=== PATIENT | male | born 1965 | race Two or more races ===

== ENCOUNTER 2023-11-08 14:03 | Outpatient (AMB) | payer OTHER, SELFPAY ==
--- NOTE | 2023-11-08 14:15 | HO.NEPHOV ---
HPI HPI Comments History of Present Illness Details Dieter was seen in follow-up of his chronic kidney disease and hypertension. 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 He had global glomerulosclerosis of 25% of total glomeruli with mild interstitial fibrosis and tubular atrophy of 20% at the time of his renal biopsy. 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 He has not taking any nonsteroidal anti-inflammatories. He has no edema or urinary symptoms. His blood pressure has been at goal. He is compliant with his medications. His last serum creatinine has been 1.6. [facility] Medical History (Updated 11/08/23 @ 14:35 by Angelo Hitchcock MD) Chronic kidney disease, stage 3a Hypertension Surgical History History of hernia repair Family History Brother Diabetes Social History (Updated 11/08/23 @ 14:21 by Ethel Luke MA) Alcohol intake: never Patient Tobacco Use Status: Never used Tobacco Vital Signs 11/08/23 14:16 Height 5 ft 6 in Weight 195 lb BMI 31.5 BP 130/80 Blood Pressure Location Lt brachial Position Sitting Pulse 65 Pulse Source Pulse Oximeter Pulse Oximetry (%) 97 Oxygen Delivery Method Room Air Physical Exam Vital Signs: Last Vital Signs Pulse 65 11/08/23 14:16 BP 130/80 11/08/23 14:16 Pulse Ox 97 11/08/23 14:16 Oxygen Delivery Method Room Air 11/08/23 14:16 BMI result Body Mass Index 31.5 Const General: comfortable and no acute distress Orientation/consciousness: patient oriented x3 HEENT Head: Yes normocephalic Mouth: Normal oral and palatal mucosa present Eyes EOM: EOMs intact bilaterally Neck Neck: Yes supple Resp Auscultation: clear to auscultation bilaterally Cardio Jugular venous distension: no JVD Rate: regular rate GI Palpation (GI): Soft to palpation Auscultation: normal bowel sounds General: Yes no CVA tenderness Back/Spine/Pelvis Back: no CVA tenderness Skin General skin exam: no rashes or lesions noted Neuro General: patient oriented x3 and moves all extremities Extrem General: Yes no pedal edema Assessment & Plan Assessment & Plan (1) Chronic kidney disease, stage 3a: Code(s): N18.31 - Chronic kidney disease, stage 3a (2) Hypertension: Code(s): I10 - Essential (primary) hypertension Qualifiers: Hypertension type: primary hypertension Qualified Code(s): I10 - Essential (primary) hypertension Plan His last serum creatinine was 1.6. His losartan is on hold and had been initiated on low-dose ROSAS inhibitor which he has been tolerating well. He can continue his current blood pressure medications as it is keeping it at goal. He maintains good hydration. He avoids nonsteroidal anti-inflammatories. He has not a diabetic. He is on statins. I did not make any medication changes today. Follow-up lab work ordered. Answered all questions. Appointment given. Orders: Orders Blood Urea Nitrogen Today I10 - Essential (primary) hypertension, N18.31 - Chronic kidney disease, stage 3a Electrolytes Today I10 - Essential (primary) hypertension, N18.31 - Chronic kidney disease, stage 3a Protein Creatinine Ratio, Ur Today I10 - Essential (primary) hypertension, N18.31 - Chronic kidney disease, stage 3a Creatinine Today I10 - Essential (primary) hypertension, N18.31 - Chronic kidney disease, stage 3a Coding Level of Care Code Est Pt Level 3 (74388) Diagnoses Chronic kidney disease, stage 3a N18.31 Primary hypertension I10 Hypertension type: primary hypertension Results Reviewed Nephrology Results: No Data to Display
[2023-11-08 14:16] VITALS: BP 130/80; PULSE 65; O2SAT 97; BMI 31.5
== END 2023-11-08 14:44 | disposition home or self-care (01) ==
PROVIDERS: PCP Pediatrics; Visit Provider Internal Medicine Nephrology
DX: N18.31 Chronic kidney disease, stage 3a (principal); I10 Essential (primary) hypertension
CPT/HCPCS: 99213

== ENCOUNTER → 2023-11-08 14:03 | Outpatient (BNVA) | payer OTHER, SELFPAY | PROVIDERS: PCP Pediatrics; Visit Provider Internal Medicine Nephrology | DX: I12.9 Hypertensive chronic kidney disease with stage 1 through stage 4 chronic kidney disease, or unspecified chronic kidney disease (principal); N18.31 Chronic kidney disease, stage 3a | CPT/HCPCS: 99212 ==

== ENCOUNTER 2024-03-13 11:09 | Outpatient (REF) | payer OTHER, SELFPAY ==
[2024-03-13 18:29] LABS: Anion Gap 13 (12-20); Blood Urea Nitrogen 30 mg/dL (9-16); Carbon Dioxide 24 mmol/L (22-29); Chloride 107 mmol/L (96-108); Estimated Glomerular Filt Rate 39; Potassium 4.2 mmol/L (3.3-5.1); Sodium 140 mmol/L (135-145)
== END 2024-03-13 11:10 | disposition home or self-care (01) ==
LOC: HO.HKASLDS 11:09
PROVIDERS: Visit Provider Internal Medicine Nephrology
DX: I12.9 Hypertensive chronic kidney disease with stage 1 through stage 4 chronic kidney disease, or unspecified chronic kidney disease (principal); N18.31 Chronic kidney disease, stage 3a
CPT/HCPCS: 36415; 80051; 82565; 84520; 99212

== ENCOUNTER 2024-03-13 11:18 | Outpatient (AMB) | payer OTHER, SELFPAY ==
--- NOTE | 2024-03-13 11:24 | HO.NEPHOV_ITS ---
Vital Signs 03/13/24 11:26 Height 5 ft 6 in Weight 188 lb 6 oz BMI 30.4 BP 106/70 Blood Pressure Location Lt brachial Position Sitting Pulse 71 Pulse Source Pulse Oximeter Pulse Oximetry (%) 97 Oxygen Delivery Method Room Air Intake Visit Reasons: Rscng missed appt/ Conf Second Facing Baster Required: No Accompanied by: Self / Same As Patient Allergies Oxycodone-Acetaminophen Allergy (Uncoded 11/08/23 13:27) Unknown HPI Comments Details: Dieter was seen in follow-up of his chronic kidney disease and hypertension. 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 He had global glomerulosclerosis of 25% of total glomeruli with mild interstitial fibrosis and tubular atrophy of 20% at the time of his renal biopsy. 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 He has not taking any nonsteroidal anti-inflammatories. He has no edema or urinary symptoms. His blood pressure has been at goal. He is compliant with his medications. His last serum creatinine has been 1.6. [facility] Medical History (Updated 11/08/23 @ 14:35 by Angelo Hitchcock MD) Chronic kidney disease, stage 3a Hypertension Surgical History History of hernia repair Family History Brother Diabetes Social History (Updated 11/08/23 @ 14:21 by Ethel Luke MA) Alcohol intake: never Patient Tobacco Use Status: Never used Tobacco Review of Systems Const All systems reviewed & are unremarkable except as noted in HPI and below Physical Exam Const General: comfortable and no acute distress Orientation/consciousness: patient oriented x3 HEENT Head: Yes normocephalic Mouth: Normal oral and palatal mucosa present Eyes EOM: EOMs intact bilaterally Neck Neck: Yes supple Resp Auscultation: clear to auscultation bilaterally Cardio Jugular venous distension: no JVD Rate: regular rate GI Palpation (GI): Soft to palpation Auscultation: normal bowel sounds General: Yes no CVA tenderness Back/Spine/Pelvis Back: no CVA tenderness Skin General skin exam: no rashes or lesions noted Neuro General: patient oriented x3 and moves all extremities Extrem General: Yes no pedal edema Results Reviewed Nephrology Results: No Data to Display Assessment & Plan Assessment & Plan (1) Chronic kidney disease, stage 3a: Code(s): N18.31 - Chronic kidney disease, stage 3a Category: Medical (2) Hypertension: Code(s): I10 - Essential (primary) hypertension Category: Medical Qualifiers: Hypertension type: primary hypertension Qualified Code(s): I10 - Essential (primary) hypertension Plan His last serum creatinine was 1.6. He had blood work today. He had been initiated on low-dose ROSAS inhibitor which he has been tolerating well. He can continue his current blood pressure medications as it is keeping it at goal. He maintains good hydration. He avoids nonsteroidal anti-inflammatories. He has not a diabetic. He is on statins. I did not make any medication changes today. Follow-up lab work ordered. Answered all questions. Orders: Orders Creatinine 4 Months I10 - Essential (primary) hypertension, N18.31 - Chronic kidney disease, stage 3a Blood Urea Nitrogen 4 Months I10 - Essential (primary) hypertension, N18.31 - Chronic kidney disease, stage 3a Electrolytes 4 Months I10 - Essential (primary) hypertension, N18.31 - Chronic kidney disease, stage 3a Protein Creatinine Ratio, Ur Today I10 - Essential (primary) hypertension, N18.31 - Chronic kidney disease, stage 3a Coding Level of Care Code Est Pt Level 4 (08756) Diagnoses Chronic kidney disease, stage 3a N18.31 Primary hypertension I10 Hypertension type: primary hypertension
[2024-03-13 11:26] VITALS: BP 106/70; PULSE 71; O2SAT 97; BMI 30.4
== END 2024-03-13 11:43 | disposition home or self-care (01) ==
PROVIDERS: PCP Pediatrics; Visit Provider Internal Medicine Nephrology
DX: N18.31 Chronic kidney disease, stage 3a (principal); I10 Essential (primary) hypertension
CPT/HCPCS: 99214

== ENCOUNTER 2024-03-21 08:27 | Outpatient (REF) | payer OTHER, SELFPAY ==
[2024-03-21 18:18] LABS: Creatinine Urine 161.94 mg/dL; Protein/Creatinine Ratio, Ur 0.08 (<0.2); Total Protein Urine Random 13 mg/dL (<12)
== END 2024-03-21 08:28 | disposition home or self-care (01) ==
LOC: HO.HKASLDS 08:27
PROVIDERS: Visit Provider Internal Medicine Nephrology
DX: I12.9 Hypertensive chronic kidney disease with stage 1 through stage 4 chronic kidney disease, or unspecified chronic kidney disease (principal); N18.31 Chronic kidney disease, stage 3a
CPT/HCPCS: 82570; 84156

== ENCOUNTER 2024-07-03 08:42 | Outpatient (REF) | payer OTHER, SELFPAY ==
[2024-07-03 13:15] LABS: Anion Gap 13 (12-20); Blood Urea Nitrogen 22 mg/dL (9-16); Carbon Dioxide 28 mmol/L (22-29); Chloride 106 mmol/L (96-108); Estimated Glomerular Filt Rate 35; Potassium 4.6 mmol/L (3.3-5.1); Sodium 142 mmol/L (135-145)
== END 2024-07-03 08:43 | disposition home or self-care (01) ==
LOC: HO.HKASLDS 08:42
PROVIDERS: Visit Provider Internal Medicine Nephrology
DX: N18.31 Chronic kidney disease, stage 3a (principal); I10 Essential (primary) hypertension
CPT/HCPCS: 36415; 80051; 82565; 84520

== ENCOUNTER 2024-07-05 10:40 | Outpatient (AMB) | payer OTHER, SELFPAY ==
--- NOTE | 2024-07-05 10:53 | HO.NEPHOV_ITS ---
Vital Signs 07/05/24 10:54 Height 5 ft 6 in Weight 188 lb 2 oz BMI 30.4 BP 90/70 Blood Pressure Location Lt brachial Position Sitting Pulse 68 Pulse Source Pulse Oximeter Pulse Oximetry (%) 97 Oxygen Delivery Method Room Air Intake Visit Reasons: 4 mon follow up- Conf Hands Hanger Required: No Accompanied by: Self / Same As Patient Allergies Oxycodone-Acetaminophen Allergy (Uncoded 11/08/23 13:27) Unknown HPI Comments Details: Dieter was seen in follow-up of his chronic kidney disease and hypertension. 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 He had global glomerulosclerosis of 25% of total glomeruli with mild interstitial fibrosis and tubular atrophy of 20% at the time of his renal biopsy. 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 He has not taking any nonsteroidal anti-inflammatories. He has no edema or urinary symptoms. His blood pressure has been at goal. He is compliant with his medications. His last serum creatinine has been stable [facility] Medical History (Updated 11/08/23 @ 14:35 by Angelo Hitchcock MD) Chronic kidney disease, stage 3a Hypertension Surgical History History of hernia repair Family History Brother Diabetes Social History Alcohol intake: never Patient Tobacco Use Status: Never used Tobacco Review of Systems Const All systems reviewed & are unremarkable except as noted in HPI and below Physical Exam Vital Signs: Last Vital Signs Pulse 68 07/05/24 10:54 BP 90/70 07/05/24 10:54 Pulse Ox 97 07/05/24 10:54 Oxygen Delivery Method Room Air 07/05/24 10:54 BMI result Body Mass Index 30.4 Const General: comfortable and no acute distress Orientation/consciousness: patient oriented x3 HEENT Head: Yes normocephalic Mouth: Normal oral and palatal mucosa present Eyes EOM: EOMs intact bilaterally Neck Neck: Yes supple Resp Auscultation: clear to auscultation bilaterally Cardio Jugular venous distension: no JVD Rate: regular rate GI Palpation (GI): Soft to palpation Auscultation: normal bowel sounds General: Yes no CVA tenderness Back/Spine/Pelvis Back: no CVA tenderness Skin General skin exam: no rashes or lesions noted Neuro General: patient oriented x3 and moves all extremities Extrem General: Yes no pedal edema Results Reviewed Nephrology Results: Sodium 142 mmol/L (135-145) 07/03/24 Potassium 4.6 mmol/L (3.3-5.1) 07/03/24 Chloride 106 mmol/L (96-108) 07/03/24 Carbon Dioxide 28 mmol/L (22-29) 07/03/24 BUN 22 mg/dL (9-16) H 07/03/24 Creatinine 1.94 mg/dL (0.5-1.4) H 07/03/24 Urine Creatinine 161.94 mg/dL 03/21/24 Protein/Creatinin Ratio 0.08 (<0.2) 03/21/24 Assessment & Plan Assessment & Plan (1) Chronic kidney disease, stage 3a: Code(s): N18.31 - Chronic kidney disease, stage 3a Category: Medical (2) Hypertension: Code(s): I10 - Essential (primary) hypertension Category: Medical Qualifiers: Hypertension type: primary hypertension Qualified Code(s): I10 - Essential (primary) hypertension Plan His last serum creatinine is stable. He had been initiated on low-dose ROSAS inhibitor which he has been tolerating well. He can continue his current blood pressure medications as it is keeping it at goal. He maintains good hydration. He avoids nonsteroidal anti-inflammatories. He has not a diabetic. He is on statins. I did not make any medication changes today. Follow-up lab work ordered. Answered all questions Orders: Orders Creatinine 3 Months I10 - Essential (primary) hypertension, N18.31 - Chronic kidney disease, stage 3a Blood Urea Nitrogen 3 Months I10 - Essential (primary) hypertension, N18.31 - Chronic kidney disease, stage 3a Electrolytes 3 Months I10 - Essential (primary) hypertension, N18.31 - Chronic kidney disease, stage 3a Vitamin D 25-OH Total 3 Months I10 - Essential (primary) hypertension, N18.31 - Chronic kidney disease, stage 3a Parathyroid Hormone Intact 3 Months I10 - Essential (primary) hypertension, N18.31 - Chronic kidney disease, stage 3a Coding Level of Care Code Est Pt Level 4 (44192) Diagnoses Chronic kidney disease, stage 3a N18.31 Primary hypertension I10 Hypertension type: primary hypertension
[2024-07-05 10:54] VITALS: BP 90/70; PULSE 68; O2SAT 97; BMI 30.4
== END 2024-07-05 13:09 | disposition home or self-care (01) ==
PROVIDERS: PCP Pediatrics; Visit Provider Internal Medicine Nephrology
DX: N18.31 Chronic kidney disease, stage 3a (principal); I10 Essential (primary) hypertension
CPT/HCPCS: 99214

== ENCOUNTER → 2024-07-05 10:40 | Outpatient (BNVA) | payer OTHER, SELFPAY | PROVIDERS: PCP Pediatrics; Visit Provider Internal Medicine Nephrology | DX: I12.9 Hypertensive chronic kidney disease with stage 1 through stage 4 chronic kidney disease, or unspecified chronic kidney disease (principal); N18.31 Chronic kidney disease, stage 3a | CPT/HCPCS: 99212 ==

== ENCOUNTER 2024-11-01 13:44 | Outpatient (AMB) | payer OTHER, SELFPAY ==
--- NOTE | 2024-11-01 13:45 | HO.NEPHOV_ITS ---
Vital Signs 11/01/24 14:03 Height 5 ft 6 in Weight 192 lb BMI 31.0 BP 120/78 Blood Pressure Location Lt brachial Position Sitting Pulse 74 Pulse Source Pulse Oximeter Pulse Oximetry (%) 98 Oxygen Delivery Method Room Air Intake Visit Reasons: 3mon follow up-LVM Accompanied by: Self / Same As Patient Allergies Oxycodone-Acetaminophen Allergy (Uncoded 11/08/23 13:27) Unknown HPI Comments Details: Dieter was seen in follow-up of his chronic kidney disease and hypertension. 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 He had global glomerulosclerosis of 25% of total glomeruli with mild interstitial fibrosis and tubular atrophy of 20% at the time of his renal biopsy. 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 He has not taking any nonsteroidal anti-inflammatories. He has no edema or urinary symptoms. His blood pressure has been at goal. He is compliant with his medications. His last serum creatinine has been stable [facility] Medical History (Updated 11/08/23 @ 14:35 by Angelo Hitchcock MD) Chronic kidney disease, stage 3a Hypertension Surgical History History of hernia repair Family History Brother Diabetes Social History Alcohol intake: never Patient Tobacco Use Status: Never used Tobacco Physical Exam Vital Signs: Last Vital Signs Pulse 74 11/01/24 14:03 BP 120/78 11/01/24 14:03 Pulse Ox 98 11/01/24 14:03 Oxygen Delivery Method Room Air 11/01/24 14:03 BMI result Body Mass Index 31.0 Const General: comfortable and no acute distress Orientation/consciousness: patient oriented x3 HEENT Head: Yes normocephalic Mouth: Normal oral and palatal mucosa present Eyes EOM: EOMs intact bilaterally Neck Neck: Yes supple Resp Auscultation: clear to auscultation bilaterally Cardio Jugular venous distension: no JVD Rate: regular rate GI Palpation (GI): Soft to palpation Auscultation: normal bowel sounds General: Yes no CVA tenderness Back/Spine/Pelvis Back: no CVA tenderness Skin General skin exam: no rashes or lesions noted Neuro General: patient oriented x3 and moves all extremities Extrem General: Yes no pedal edema Assessment & Plan Assessment & Plan (1) Chronic kidney disease, stage 3a: Code(s): N18.31 - Chronic kidney disease, stage 3a Category: Medical (2) Hypertension: Code(s): I10 - Essential (primary) hypertension Category: Medical Qualifiers: Hypertension type: primary hypertension Qualified Code(s): I10 - Essential (primary) hypertension Plan He had been initiated on low-dose ROSAS inhibitor which he has been tolerating well. He can continue his current blood pressure medications as it is keeping it at goal. He maintains good hydration. He avoids nonsteroidal anti-infla mmatories. He has not a diabetic. He is on statins. I did not make any medication changes today. Follow-up lab work ordered. Answered all questions Orders: Orders Creatinine 3 Months I10 - Essential (primary) hypertension, N18.31 - Chronic kidney disease, stage 3a Blood Urea Nitrogen 3 Months I10 - Essential (primary) hypertension, N18.31 - Chronic kidney disease, stage 3a Electrolytes 3 Months I10 - Essential (primary) hypertension, N18.31 - Chronic kidney disease, stage 3a Coding Level of Care Code Est Pt Level 4 (01095) Diagnoses Chronic kidney disease, stage 3a N18.31 Primary hypertension I10 Hypertension type: primary hypertension
--- OUTSIDE RECORDS SUMMARY | 2024-11-01 13:49 | XMS_ITS | Encounter Summary ---
Author Organization [facility] Address [address] [facility] [address] [place] [address] Phone Care Team Providers Care Guzzler Builder Name Role Phone Enrique Sharma Primary Care Provider [phone] Reason for Visit * Reason Comments Med Refill Encounter Details Date Type Department Care Team (Late st Contact Info) Description 10/03/2024 Refill [facility] [address] [facility] [address] [place] [address] Harman Walker MD [address] [facility] [address] [place] [phone] Hypertension Social History Tobacco Use Types Packs/Day Years Used Date Smoking Tobacco: Never Smokeless Tobacco: Never Alcohol Use Standard Drinks/Week Comments No 0 (1 standard drink = 0.6 oz pur e alcohol) Sex and Gender Information Value Date Recorded Sex Assigned at Not on file Legal Sex Male 4:59 PM EST Gender Identity Not on file Sexual Orientation Not on file documented as of this encounter Plan of Treatment Not on file documented as of this encounter Visit Diagnoses Diagnosis Hypertension documented in this encounter Care Teams Guzzler Builder Relationship Specialty Start Date End Date Enrique Sharma [address] [place] [address] PCP - General 12/31/21 documented as of this encounter
--- OUTSIDE RECORDS SUMMARY | 2024-11-01 13:49 | XMS_ITS | Encounter Summary ---
Author Organization [facility] Address [address] [facility] [address] [place] [address] Phone Care Team Providers Care Insulation Cutter Name Role Phone Enrique Sharma Primary Care Provider [phone] Encounter Details Date Type Department Care Team ([facility] st Contact Info) Description 12/02/2023 Office Communication [facility] [address] [facility] [address] [place] [phone] Harman Walker MD [address] [facility] [address] [place] [phone] Social History Tobacco Use Types Packs/Day Years [...] on file documented as of this encounter Miscellaneous Notes * Telephone Encounter - Harman Walker MD - 12/02/2023 3:22 AM EDT Needs f/u in 4-5 wks documented in this encounter Plan of Treatment Not on file documented as of this encounter Visit Diagnoses Not on filedocumented in this encounter Care Teams Insulation Cutter Relationship Specialty Start Date End Date Enrique Sharma [address] [place] [address] PCP - General 12/31/21 documented as of this encounter
--- OUTSIDE RECORDS SUMMARY | 2024-11-01 13:49 | XMS_ITS | Clinical Summary ---
Author Organization [facility] ity Address [address] [place] [address] Care Team Providers Care Fertilizer Supervisor Name Role Phone Unavailable Primary Care Provider Unavailabl e Social History Tobacco Use Types Packs/Day Years Used Date Smoking Tobacco: Never Assessed Sex and Gender Information Value Date Recorded Sex Assigned at Not on file Legal Sex Male 12:25 PM EST Gender Identity Not on file Sexual Orientation Not on file Plan of Treatment Health Maintenance Due Date Last Done Comments DTaP,Tdap,and Td Vaccines (1 - Tdap) 1982 Pneumococcal Vaccine: 50+ Ye ars (1 of 1 - PCV) 2013 Zoster Vaccines (1 of 2) 2013 Cholesterol Screening (Lipid Panel) 10/18/2023 Colorectal Cancer Screening: Colonoscopy 10/18/2023 Depression Screening 10/18/2023 HIV Screening 10/18/2023 Hepatitis C Screening 10/18/2023 Social Influencers of Health Screening 10/18/2023 COVID-19 Vaccine (2023-2 5 season) 2024 Influenza Vaccine (#1) 2024 RSV Immunization Patients 60 + Years Old (1 - 1-dose 75+ series) 2038 HIB Vaccines Aged Out No longer eligi ble based on patient's age to complete this topic HPV Vaccines Aged Out No longer eligi ble based on patient's age to complete this topic Hepatitis A Vaccines Aged Out No long er eligible based on patient's age to complete this topic Hepatitis B Vaccines Aged Out No long er eligible based on patient's age to complete this topic IPV Vaccines Aged Out No longer eligi ble based on patient's age to complete this topic MMR Vaccines Aged Out No longer eligi ble based on patient's age to complete this topic Meningococcal ACWY Vaccine Aged Out N o longer eligible based on patient's age to complete this topic Meningococcal B Vacine Aged Out No lo nger eligible based on patient's age to complete this topic Pneumococcal Vaccine: Pediat rics (0 to 5 Years) and At-Risk Patients (6 to 64 Years) Aged Out No longer eligible b ased on patient's age to complete this topic RSV Immunization Patients Un tami 20 months Aged Out No longer eligible b ased on patient's age to complete this topic Varicella Vaccines Aged Out No longer eligible based on patient's age to complete this topic
--- OUTSIDE RECORDS SUMMARY | 2024-11-01 13:50 | XMS_ITS | Clinical Summary ---
Author Organization [facility] Address [address] [facility] 20 0 [place] [address] Phone Care Team Providers Care Quality Coordinator Name Role Phone Aren Sharmaory Primary Care Provider [phone] Allergies Active Allergy Reactions Criticality Noted Date Comments Oxycodone-Acetaminophen 12/09/2020 Medications albuterol HFA (PROVENTIL HFA;VENTOLIN HFA) 108 (90 Base) MCG/ACT inhaler Inhale 2 puffs 1 (one) time each day Active atorvastatin (LIPITOR) 10 MG tablet Take 1 tablet by mouth 1 (one) time each day 12/11/19 17 Active traMADol (ULTRAM) 50 MG tablet Take 1 tablet by mouth 1 (one) time each day Active loratadine (CLARITIN) 10 MG tablet Take 10 mg by mouth 1 (one) time each day Active Flovent HFA 220 MCG/ACT inhaler 06/22/20 21 Active Xeljanz XR 11 MG tablet sustained-rele ase 24 hour Take 1 tablet by mouth 1 (one) time each day 08/05/20 21 Active predniSONE (DELTASONE) 2.5 MG tablet Take 2.5 mg by mouth 1 (one) time each day 06/23/20 22 Active escitalopram (LEXAPRO) 10 MG tablet Take 10 mg by mouth 1 (one) time each day 01/01/20 23 Active labetalol (NORMODYNE) 100 MG tablet TAKE 1 TABLET BY MOUTH EVERY DAY 90 tablet 3 06/06/20 23 Active Diclofenac Sodium 1 % gel APPLY 2-3 GRAMS TOPICALLY TWICE DAILY NEEDED FOR PAIN 06/03/20 23 Active acetaminophen (TYLENOL 8 HOUR) 650 MG 8 hr tablet TAKE 2 TABLETS BY MOUTH EVERY 8 HOURS NEEDED FOR FEVER 08/08/20 23 Active lisinopril 2.5 MG tabletIndicati ons:Hypertensi on TAKE 1 TABLET BY MOUTH 1 TIME EACH DAY. 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 Obese class I 12/31/2021 Hypertensive retinopathy 10/06/2021 Hypertension 07/17/2021 Stage 3a chronic kidney disease 12/09/2020 Hypertensive heart disease without heart failure 12/09/2020 Rheumatoid arthritis 12/09/2020 Uncomplicated mild persistent asthma 06/20/2009 Resolved Problems Problem Noted Date Diagnosed Date Resolved Date Chronic viral hepatitis C 12/31/2021 Impotence 12/31/2021 12/31/2021 Lichen simplex chronicus 12/31/2021 Retinal disorder 12/31/2021 12/31/2021 Bilateral cataracts 10/06/2021 01/01/20 22 Depressive disorder 10/06/2021 01/01/20 22 Gout 10/06/2021 12/31/2021 Herpes zoster 10/06/2021 12/31/2021 Hypertriglyceridemia 10/06/2021 022 Osteoarthritis 10/06/2021 12/31/2021 Pain of knee region 10/06/2021 01/01/20 22 Unspecified open-angle glauc chase, stage unspecified 10/06/2021 12/31/2021 Renal failure syndrome 10/06/202112/31 Asthma 06/20/2009 12/31/2021 Inguinal hernia 06/20/2009 12/31/2021 Overview (10/06/2021): right, repaired 05/27 Retinopathy due to diabetes mellitus 06/20/2009 12/31/2021 Overview (10/06/2021): hypertensive Encounters Date Type Department Care Team Description 10/18/2024 Refill [facility] [address] [facility] [place] [address] Harman Walker MD 10/13/2024 Refill [facility] [address] [place] [address] Harman Walker MD 10/03/2024 Refill [facility] [address] [place] [address] Harman Walker MD Hypertension from Last 3 Months Immunizations Name Administration Dates Next Due Influenza, Unspecified 09/14/2022 Pfizer SARS-COV-2 10/03/2021 Pneumococcal Conjugate 13-Valent 04/06/2018 Pneumococcal Polysaccharide 12/19/2014 SARS-CoV-2, Unspecified 09/14/2022 Shingrix 12/31/2020,08/22/2020 Tdap 12/19/2014 Family History Medical History Relation Comments Diabetes Mother Hypertension Mother Hypertension Sibling 1 sister Diabetes Sibling 2 sister Relation Status Comments Father Mother Sibling 1 Sibling 2 Social History Tobacco Use Types Packs/Day Years Used Date Smoking Tobacco: Never Smokeless Tobacco: Never Tobacco Cessation:Counseling Given: Not Answered Alcohol Use Standard Drinks/Week Comments No 0 (1 standard drink = 0.6 oz pur e alcohol) Sex and Gender Information Value Date Recorded Sex Assigned at Not on file Legal Sex Male 4:59 PM EST Gender Identity Not on file Sexual Orientation Not on file Last Filed Vital Signs Vital Sign Reading Time Taken Comments Blood Pressure 134/92 08/22/2023 4:12 PM EST Pulse 72 08/22/2023 4:08 PM EST Temperature - - Respiratory Rate - - Oxygen Saturation 98% 06/13/2023 4:43 PM EDT Inhaled Oxygen Concentration - - Weight 88 kg (194 lb) 08/22/2023 4:08 PM EST Height 167.6 cm (5' 6 ) 12/20/2019 12:00 PM EDT Body Mass Index 31.31 12/20/2019 12:00 PM EDT Plan of Treatment Health Maintenance Due Date Last Done Comments Colorectal Cancer Screening: Annual FOBT 2012 Colorectal Cancer Screening: Colonoscopy 2012 Colorectal Cancer Screening: Sigmoidoscopy 2012 Pneumococcal Vaccine: Pediatrics (0 to 5 Years) and At-Risk Patients (6 to 64 Years) (3 of 3 - PPSV23 or PCV20) 12/20/2019 04/06/2018, 12/19/2014 Influenza Vaccine (#1) 2024 3, 09/14/2022 Hepatitis B Vaccine Aged Out No longe r eligible based on patient's age to complete this topic Insurance (A2793) ([id number]) Care Teams Quality Coordinator Relationship Specialty Start Date End Date Enrique Sharma [address] [place] [address] PCP - General 12/31/21
--- OUTSIDE RECORDS SUMMARY | 2024-11-01 13:50 | XMS_ITS | Encounter Summary ---
Author Organization [facility] Address 100 [facility] 200 [place] [address] Phone Care Team Providers Care Director Selection And Administration Name Role Phone Enrique Sharma Primary Care Provider Reason for Visit * Reason Comments Med Refill Encounter Details Date Type Department Care Team (Late st Contact Info) Description 10/13/2024 Refill [facility] 100 [facility] 200 [place] [phone] Harman Walker MD 3550 [facility] 204 [place] [phone] Social History Tobacco Use Types Packs/Day Years [...] on filedocumented in this encounter Care Teams Director Selection And Administration Relationship Specialty Start Date End Date Enrique Sharma [address] [place] [address] PCP - General 12/31/21 documented as of this encounter
--- OUTSIDE RECORDS SUMMARY | 2024-11-01 13:50 | XMS_ITS | Encounter Summary ---
Author Organization [facility] Address 100 [facility] 200 [address] Phone Care Team Providers Care Trade Economist Name Role Phone Enrique Sharma Primary Care Provider [phone] Reason for Visit * Reason Comments Med Refill Encounter Details Date Type Department Care Team (Late st Contact Info) Description 10/18/2024 Refill [facility] 100 [facility] 200 [phone] Harman Walker MD 3550 [facility] 204 [phone] Social History Tobacco Use Types Packs/Day Years [...] on filedocumented in this encounter Care Teams Trade Economist Relationship Specialty Start Date End Date Enrique Sharma [address] [place] [address] PCP - General 12/31/21 documented as of this encounter
--- OUTSIDE RECORDS SUMMARY | 2024-11-01 13:50 | XMS_ITS | Encounter Summary ---
Author Organization [facility] Address 100 [facility] 200 [place] [address] Phone Care Team Providers Care Lead Atg Developer Name Role Phone Enrique Sharma Primary Care Provider [phone] Reason for Visit * Reason Comments Med Refill Encounter Details Date Type Department Care Team (Late st Contact Info) Description 12/01/2023 Refill [facility] 100 [facility] 200 [place] [phone] Harman Walker MD 3550 [facility] 204 [place] [phone] Social History Tobacco Use Types Packs/Day Years [...] MD - 12/02/2023 3:22 AM EDT Needs f/uin 4-6 wks documented in this encounter Plan of Treatment Not on file documented as of this encounter Visit Diagnoses Not on filedocumented in this encounter Care Teams Lead Atg Developer Relationship Specialty Start Date End Date Enrique Sharma [address] [place] [address] PCP - General 12/31/21 documented as of this encounter
[2024-11-01 14:03] VITALS: BP 120/78; PULSE 74; O2SAT 98; BMI 31.0
== END 2024-11-01 14:22 | disposition home or self-care (01) ==
PROVIDERS: PCP Pediatrics; Visit Provider Internal Medicine Nephrology
DX: N18.31 Chronic kidney disease, stage 3a (principal); I10 Essential (primary) hypertension
CPT/HCPCS: 99214

== ENCOUNTER → 2024-11-01 13:44 | Outpatient (BNVA) | payer OTHER, SELFPAY | PROVIDERS: PCP Pediatrics; Visit Provider Internal Medicine Nephrology | DX: I12.9 Hypertensive chronic kidney disease with stage 1 through stage 4 chronic kidney disease, or unspecified chronic kidney disease (principal); N18.31 Chronic kidney disease, stage 3a | CPT/HCPCS: 99212 ==

== ENCOUNTER 2025-01-24 10:09 | Outpatient (REF) | payer OTHER, SELFPAY ==
--- OUTSIDE RECORDS SUMMARY | 2025-01-24 11:17 | XMS_ITS | Clinical Summary ---
Author Organization [facility] ity Address [address] [place] [address] Care Team Providers Care Office Technology Instructor Name Role Phone Unavailable Primary Care Provider [...] Vaccine (2023-2 5 season) 2024 Influenza Vaccine (Season Ended) 2025 RSV Immunization Adult Patie nts (1 - 1-dose 75+ series) 2038 HIB [...] age to complete this topic Meningococcal B Vaccine Aged Out No l onger eligible based on patient's age to complete [...]
--- OUTSIDE RECORDS SUMMARY | 2025-01-24 11:17 | XMS_ITS | Encounter Summary ---
Author Organization [facility] Address 100 [facility] 200 [place] [address] Phone Care Team Providers Care Debarker Operator Name Role Phone Enrique Sharma Primary Care Provider [phone] Reason for Visit * Reason Comments Med Refill Encounter Details Date Type Department Care Team (Late st Contact Info) Description 10/13/2024 Refill [facility] [address] [facility] 200 [place] [phone] Harman Walker MD 3550 [facility] 204 [place] [phone] Social History Tobacco Use Types Packs/Day Years [...] on filedocumented in this encounter Care Teams Debarker Operator Relationship Specialty Start Date End Date Enrique Sharma [address] [place] [address] PCP - General 12/31/21 documented as of this encounter
--- OUTSIDE RECORDS SUMMARY | 2025-01-24 11:17 | XMS_ITS | Clinical Summary ---
Author Organization [facility] Address [address] [facility] [address] [place] [address] Phone Care Team Providers Care Glass Robot Operator Name Role Phone Aren Sharmaory Primary Care Provider [phone] Allergies Active Allergy Reactions Criticality Noted Date Comments Oxycodone-Acetaminophen 12/09/2020 Medications albuterol HFA (PROVENTIL HFA;VENTOLIN HFA) 108 (90 Base) MCG/ACT inhaler Inhale 2 puffs 1 (one) time each day Active atorvastatin (LIPITOR) 10 MG tablet Take 1 tablet by mouth 1 (one) time each day 7 Active traMADol (ULTRAM) 50 MG tablet Take 1 tablet by mouth 1 (one) time each day Active loratadine (CLARITIN) 10 MG tablet Take 10 mg by mouth 1 (one) time each day Active Flovent HFA 220 MCG/ACT inhaler 1 Active Xeljanz XR 11 MG tablet sustained-relea se 24 hour Take 1 tablet by mouth 1 (one) time each day 1 Active predniSONE (DELTASONE) 2.5 MG tablet Take 2.5 mg by mouth 1 (one) time each day 2 Active escitalopram (LEXAPRO) 10 MG tablet Take 10 mg by mouth 1 (one) time each day 3 Active labetalol (NORMODYNE) 100 MG tablet TAKE 1 TABLET BY MOUTH EVERY DAY 90 tablet 3 3 Active Diclofenac Sodium 1 % gel APPLY 2-3 GRAMS TOPICALLY TWICE DAILY NEEDED FOR PAIN 3 Active acetaminophen (TYLENOL 8 HOUR) 650 MG 8 hr tablet TAKE 2 TABLETS BY MOUTH EVERY 8 HOURS NEEDED FOR FEVER 3 Active NIFEdipine CC (ADALAT CC) 90 MG 24 hr tablet TAKE 1 TABLET BY MOUTH EVERY DAY BEFORE BREAKFAST 90 tablet 1 5 Active lisinopril 2.5 MG tabletIndicatio ns:Hypertension TAKE 1 TABLET BY MOUTH EVERY DAY 90 tablet 1 5 Active Active Problems Problem Noted Date Diagnosed Date [...] Encounters Date Type Department Care Team Description 11/04/2024 Office Communication [facility] [address] [place] [phone] Harman Walker MD 11/03/2024 Refill [facility] [address] [place] [address] Harman Walker MD Hypertension from Last 3 Months Immunizations Immunization Administration Dates Next Due Influenza, Unspecified 09/14/2022 [...] Colorectal Cancer Screening: Sigmoidoscopy 2012 Pneumococcal Vaccine: 50+ Years (3 of 3 - PPSV23, PCV20 or PCV21) 12/20/2019 04/06/2018, 12/19/2014 Pneumococcal Vaccine: Peds ( 0 to 5 Years) and At-Risk Patients (6 to 49 Years) Discontinued 04/06/2018, 12/19/2014 Influenza Vaccine Completed 10/03/2024, 06/23/2023, 09/14/2022 Hepatitis B Vaccine Aged Out No longe r eligible based on patient's age to complete this topic Insurance ([id number]) [facility] ([id number]) Care Teams Glass Robot Operator Relationship Specialty Start Date End Date Enrique Sharma [address] [place] [address] PCP - General 12/31/21
--- OUTSIDE RECORDS SUMMARY | 2025-01-24 11:17 | XMS_ITS | Encounter Summary ---
Author Organization [facility] Address 100 [facility] 200 [place] [address] Phone Care Team Providers Care Orthopedic Physical Therapist Name Role Phone Enrique Sharma Primary Care Provider [phone] Reason for Visit * Reason Comments Med Refill Encounter Details Date Type Department Care Team (Late st Contact Info) Description 12/01/2023 Refill [facility] 100 [facility] 200 [place] [phone] Harman Walker MD 3550 [facility] 204 [place] [phone] Social History Tobacco Use Types Packs/Day Years [...] on filedocumented in this encounter Care Teams Orthopedic Physical Therapist Relationship Specialty Start Date End Date Enrique Sharma [address] [place] [address] PCP - General 12/31/21 documented as of this encounter
--- OUTSIDE RECORDS SUMMARY | 2025-01-24 11:17 | XMS_ITS | Encounter Summary ---
Author Organization [facility] Address 100 [facility] 200 [place] [address] Phone Care Team Providers Care Alteration Specialist Name Role Phone Enrique Sharma Primary Care Provider [phone] Reason for Visit * Reason Comments Med Refill Encounter Details Date Type Department Care Team (Late st Contact Info) Description 10/03/2024 Refill [facility] 100 [facility] 200 [place] [address] Harman Walker MD [address] [facility] 204 [place] [phone] Hypertension Social History Tobacco Use Types Packs/Day [...] Hypertension documented in this encounter Care Teams Alteration Specialist Relationship Specialty Start Date End Date Enrique Sharma [address] [place] [address] PCP - General 12/31/21 documented as of this encounter
[2025-01-24 18:03] LABS: Anion Gap 11 (12-20); Blood Urea Nitrogen 20 mg/dL (9-16); Carbon Dioxide 24 mmol/L (22-29); Chloride 110 mmol/L (96-108); Estimated Glomerular Filt Rate 54; Potassium 4.3 mmol/L (3.3-5.1); Sodium 141 mmol/L (135-145)
[2025-01-24 18:11] LABS: Parathyroid Hormone Intact 186.2 pg/mL (8.7-77.1)
[2025-01-24 18:21] LABS: Vitamin D 25-OH Total 33.2 ng/mL (>30)
== END 2025-01-24 10:10 | disposition home or self-care (01) ==
LOC: HO.HKASLDS 10:09
PROVIDERS: Visit Provider Internal Medicine Nephrology
DX: I10 Essential (primary) hypertension (principal); N18.31 Chronic kidney disease, stage 3a
CPT/HCPCS: 36415; 80051; 82306; 82565; 83970; 84520

== ENCOUNTER 2025-02-05 16:03 | Outpatient (AMB) | payer OTHER, SELFPAY ==
--- NOTE | 2025-02-05 16:14 | HO.NEPHOV ---
Vital Signs 02/05/25 16:15 Height 5 ft 6 in Weight 191 lb BMI 30.8 BP 126/74 Blood Pressure Location Lt brachial Position Sitting Pulse 82 Pulse Source Pulse Oximeter Pulse Oximetry (%) 97 Oxygen Delivery Method Room Air Intake Visit Reasons: 3mon follow-up w/labs-LVM Party Planner Required: No Accompanied by: Self / Same As Patient Allergies Oxycodone-Acetaminophen Allergy (Uncoded 11/08/23 13:27) Unknown HPI Comments Details: Dieter was seen in follow-up of his chronic kidney disease and hypertension. 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 He had global glomerulosclerosis of 25% of total glomeruli with mild interstitial fibrosis and tubular atrophy of 20% at the time of his renal biopsy. 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 He has rheumatoid arthritis and is on medications for the same from currency counter. He has not taking any nonsteroidal anti-inflammatories. He has no edema or urinary symptoms. His blood pressure has been at goal. He is compliant with his medications. His last serum creatinine has been stable [facility] Medical History (Updated 02/05/25 @ 18:17 by Angelo Hitchcock MD) Chronic kidney disease, stage 3a Hypertension Surgical History History of hernia repair Family History Brother Diabetes Social History Alcohol intake: never Patient Tobacco Use Status: Never used Tobacco Review of Systems Const All systems reviewed & are unremarkable except as noted in HPI and below Physical Exam Vital Signs: Last Vital Signs Pulse 82 02/05/25 16:15 BP 126/74 02/05/25 16:15 Pulse Ox 97 02/05/25 16:15 Oxygen Delivery Method Room Air 02/05/25 16:15 BMI result Body Mass Index 30.8 Const General: comfortable and no acute distress Orientation/consciousness: patient oriented x3 HEENT Head: Yes normocephalic Mouth: Normal oral and palatal mucosa present Eyes EOM: EOMs intact bilaterally Neck Neck: Yes supple Resp Auscultation: clear to auscultation bilaterally Cardio Jugular venous distension: no JVD Rate: regular rate GI Palpation (GI): Soft to palpation Auscultation: normal bowel sounds General: Yes no CVA tenderness Back/Spine/Pelvis Back: no CVA tenderness Skin General skin exam: no rashes or lesions noted Neuro General: patient oriented x3 and moves all extremities Extrem General: Yes no pedal edema Results Reviewed Nephrology Results: Sodium 141 mmol/L (135-145) 01/24/25 Potassium 4.3 mmol/L (3.3-5.1) 01/24/25 Chloride 110 mmol/L (96-108) H 01/24/25 Carbon Dioxide 24 mmol/L (22-29) 01/24/25 BUN 20 mg/dL (9-16) H 01/24/25 Creatinine 1.34 mg/dL (0.5-1.4) 01/24/25 PTH Intact 186.2 pg/mL (8.7-77.1) H 01/24/25 Protein/Creatinin Ratio 0.08 (<0.2) 03/21/24 Assessment & Plan Assessment & Plan (1) Hypertension: Code(s): I10 - Essential (primary) hypertension Category: Medical Qualifiers: Hypertension type: primary hypertension Qualified Code(s): I10 - Essential (primary) hypertension (2) Chronic kidney disease, stage 3a: Code(s): N18.31 - Chronic kidney disease, stage 3a Category: Medical (3) Secondary hyperparathyroidism (of renal origin): Code(s): N25.81 - Secondary hyperparathyroidism of renal origin Category: Medical Plan He had been initiated on low-dose ROSAS inhibitor which he has been tolerating well. He can continue his current blood pressure medications as it is keeping it at goal. He maintains good hydration. He avoids nonsteroidal anti-inflammatories. He has not a diabetic. He is on statins. I plan to start him on SGLT2 i as well as activated vitamin D at next visit. I did not make any medication changes today. Follow-up lab work ordered. Answered all questions Orders: Orders Creatinine 4 Months I10 - Essential (primary) hypertension, N18.31 - Chronic kidney disease, stage 3a Electrolytes 4 Months I10 - Essential (primary) hypertension, N18.31 - Chronic kidney disease, stage 3a Blood Urea Nitrogen 4 Months I10 - Essential (primary) hypertension, N18.31 - Chronic kidney disease, stage 3a Coding Level of Care Code Est Pt Level 4 (16904) Diagnoses Primary hypertension I10 Hypertension type: primary hypertension Chronic kidney disease, stage 3a N18.31 Secondary hyperparathyroidism (of renal origin) N25.81
[2025-02-05 16:15] VITALS: BP 126/74; PULSE 82; O2SAT 97; BMI 30.8
--- OUTSIDE RECORDS SUMMARY | 2025-02-05 16:43 | XMS_ITS | Encounter Summary ---
Author Organization [facility] Address 100 [facility] 200 [place] [address] Phone Care Team Providers Care Watchguard Name Role Phone Enrique Sharma Primary Care Provider [phone] Reason for Visit * Reason Comments Med Refill Encounter Details Date Type Department Care Team (Late st Contact Info) Description 10/13/2024 Refill [facility] 100 [facility] 200 [place] [phone] Harman Walker MD 3550 [facility] [address] [place] [phone] Social History Tobacco Use Types Packs/Day Years [...] on filedocumented in this encounter Care Teams Watchguard Relationship Specialty Start Date End Date Enrique Sharma [address] [place] [address] PCP - General 12/31/21 documented as of this encounter
--- OUTSIDE RECORDS SUMMARY | 2025-02-05 16:43 | XMS_ITS | Encounter Summary ---
Author Organization [facility] Address 100 [facility] 200 [place] [address] Phone Care Team Providers Care Customer Advocacy Manager Name Role Phone Enrique Sharma Primary Care Provider [phone] Reason for Visit * Reason Comments Med Refill Encounter Details Date Type Department Care Team (Late st Contact Info) Description 12/01/2023 Refill [facility] 100 [facility] 200 [place] [phone] Harman Walker MD 3550 [facility] 204 [place] [phone] Social History Tobacco Use Types Packs/Day Years [...] on filedocumented in this encounter Care Teams Customer Advocacy Manager Relationship Specialty Start Date End Date Enrique Sharma [address] [place] [address] PCP - General 12/31/21 documented as of this encounter
--- OUTSIDE RECORDS SUMMARY | 2025-02-05 16:43 | XMS_ITS | Clinical Summary ---
Author Organization [facility] ity Address [address] [place] [address] Care Team Providers Care Vp Analysis Name Role Phone Unavailable Primary Care Provider [...]
--- OUTSIDE RECORDS SUMMARY | 2025-02-05 16:43 | XMS_ITS | Clinical Summary ---
Author Organization [facility] Address [address] [facility] [facility] 20 0 [place] [address] Phone Care Team Providers Care Coach Wirer Name Role Phone Aren Sharmaory Primary Care Provider [phone] Allergies Active Allergy Reactions Criticality Noted Date [...] diabetes mellitus 06/20/2009 12/31/2021 Overview (10/06/2021): hypertensive Immunizations Immunization Administration Dates Next Due Influenza, [...] Vaccine: 50+ Years (3 of 3 - PCV20 or PCV21) 12/20/2019 04/06/2018, 12/19/2014 Pneumococcal Vaccine: Peds ( 0 to 5 Years) and At-Risk Patients (6 to 49 Years) Discontinued 04/06/2018, 12/19/2014 Influenza Vaccine Completed 10/03/2024, 06/23/2023, 09/14/2022 Hepatitis B Vaccine Aged Out No longe r eligible based on patient's age to complete this topic Insurance ([id number]) [facility] ([id number]) Care Teams Coach Wirer Relationship Specialty Start Date End Date Enrique Sharma [address] [place] [address] PCP - General 12/31/21
--- OUTSIDE RECORDS SUMMARY | 2025-02-05 16:43 | XMS_ITS | Encounter Summary ---
Author Organization [facility] Address 100 [facility] 200 [place] [address] Phone Care Team Providers Care Sustainable Development Policy Analyst Name Role Phone Enrique Sharma Primary Care Provider [phone] Reason for Visit * Reason Comments Med Refill Encounter Details Date Type Department Care Team (Late st Contact Info) Description 10/03/2024 Refill [facility] [address] [facility] 200 [place] [address] Harman Walker MD [address] [facility] [address] [place] [phone] Hypertension Social History Tobacco Use Types Packs/Day [...] Hypertension documented in this encounter Care Teams Sustainable Development Policy Analyst Relationship Specialty Start Date End Date Enrique Sharma [address] [place] [address] PCP - General 12/31/21 documented as of this encounter
== END 2025-02-05 16:29 | disposition home or self-care (01) ==
LOC: HO.HKAS 16:04
PROVIDERS: PCP Pediatrics; Visit Provider Internal Medicine Nephrology
DX: I10 Essential (primary) hypertension (principal); N18.31 Chronic kidney disease, stage 3a; N25.81 Secondary hyperparathyroidism of renal origin
CPT/HCPCS: 99214

== ENCOUNTER → 2025-02-05 16:03 | Outpatient (BNVA) | payer OTHER, SELFPAY | PROVIDERS: PCP Pediatrics; Visit Provider Internal Medicine Nephrology | DX: I12.9 Hypertensive chronic kidney disease with stage 1 through stage 4 chronic kidney disease, or unspecified chronic kidney disease (principal); N18.31 Chronic kidney disease, stage 3a; N25.81 Secondary hyperparathyroidism of renal origin | CPT/HCPCS: 99212 ==

== ENCOUNTER 2025-06-10 11:48 | Outpatient (REF) | payer OTHER, SELFPAY ==
--- OUTSIDE RECORDS SUMMARY | 2025-06-10 14:31 | XMS_ITS | Clinical Summary ---
Author Organization [facility] Address [address] [facility] [address] [place] [address] Phone Care Team Providers Care Air Press Operator Name Role Phone Aren Sharmaory Primary Care Provider [phone] Allergies Active Allergy Reactions Criticality Noted Date [...] Encounters Date Type Department Care Team Description 05/28/2025 Refill [facility] [address] [place] [address] Harman Walker MD Hypertension 04/29/2025 Office Communication [facility] [address] [place] [address] Harman Walker MD 04/29/2025 Refill [facility] [address] [place] [phone] Harman Walker MD Hypertension from Last 3 [...] - PCV20 or PCV21) 12/20/2019 04/06/2018, 12/19/2014 Influenza Vaccine (#1) 2025 , 06/23/2023, 09/14/2022 Pneumococcal Vaccine: Peds ( 0 to 5 Years) and At-Risk Patients (6 to 49 Years) Discontinued 04/06/2018, 12/19/2014 Hepatitis B Vaccine Aged Out No longe r eligible based on patient's age to complete this topic Insurance MCR ([id number]) MCR ([id number]) Care Teams Air Press Operator Relationship Specialty Start Date End Date Enrique Sharma [address] [place] [address] PCP - General 12/31/21
--- OUTSIDE RECORDS SUMMARY | 2025-06-10 14:31 | XMS_ITS | Encounter Summary ---
Author Organization [facility] Address [facility] 200 [place] [address] Phone Care Team Providers Care It Web Development Consultant Name Role Phone Enrique Sharma Primary Care Provider [phone] Reason for Visit * Reason Comments Med Refill Encounter Details Date Type Department Care Team (Late st Contact Info) Description 10/03/2024 Refill [facility] 100 [facility] 200 [place] [address] Harman Walker MD [address] [facility] [address] [place] [phone] Hypertension Social History Tobacco Use Types Packs/Day [...] Hypertension documented in this encounter Care Teams It Web Development Consultant Relationship Specialty Start Date End Date Enrique Sharma [address] [place] [address] PCP - General 12/31/21 documented as of this encounter
--- OUTSIDE RECORDS SUMMARY | 2025-06-10 14:31 | XMS_ITS | Encounter Summary ---
Author Organization [facility] Address [address] [facility] 200 [place] [address] Phone Care Team Providers Care Service Planner Name Role Phone Enrique Sharma Primary Care Provider [phone] Reason for Visit * Reason Comments Med Refill Encounter Details Date Type Department Care Team (Late st Contact Info) Description 05/28/2025 Refill [facility] [address] [facility] 200 [place] [address] Harman Walker MD [address]50 [facility] 204 [place] [phone] Hypertension Social History Tobacco Use Types Packs/Day [...] Hypertension documented in this encounter Care Teams Service Planner Relationship Specialty Start Date End Date Enrique Sharma [address] [place] [address] PCP - General 12/31/21 documented as of this encounter
--- OUTSIDE RECORDS SUMMARY | 2025-06-10 14:31 | XMS_ITS | Encounter Summary ---
Author Organization [facility]. Address [address] [address] Phone Care Team Providers Care Checkout Operator Name Role Phone Enrique Sharma Primary Care Provider [phone] Encounter Details Date Type Department Care Team ([facility] st Contact Info) Description 04/29/2025 Office Communication [facility] [address] [address] Harman Walker MD [address] [address] Social History Tobacco Use Types Packs/Day Years [...] Telephone Encounter - Harman Walker MD - 04/29/2025 2:48 AM EDT Needs f/u appt with us in next 3-4 wks belkys or me or Marily Tell him he needs appt before we can prescibe meds documented in this encounter Plan of Treatment Not on file documented as of this encounter Visit Diagnoses Not on filedocumented in this encounter Care Teams Checkout Operator Relationship Specialty Start Date End Date Enrique Sharma [address] [place] [address] PCP - General 12/31/21 documented as of this encounter
--- OUTSIDE RECORDS SUMMARY | 2025-06-10 14:31 | XMS_ITS | Encounter Summary ---
Author Organization [facility] Address 100 [facility] 200 [place] [address] Phone Care Team Providers Care Tightening Machine Operator Name Role Phone Enrique hSarma Primary Care Provider [phone] Reason for Visit * Reason Comments Med Refill Encounter Details Date Type Department Care Team (Late st Contact Info) Description 10/13/2024 Refill [facility] 100 [facility] 200 [place] [phone] Harman Walker MD [address] [facility] 204 [place] [phone] Social History Tobacco Use Types Packs/Day Years [...] on filedocumented in this encounter Care Teams Tightening Machine Operator Relationship Specialty Start Date End Date Enrique Sharma [address] [place] [address] PCP - General 12/31/21 documented as of this encounter
--- OUTSIDE RECORDS SUMMARY | 2025-06-10 14:31 | XMS_ITS | Encounter Summary ---
Author Organization [facility] Address 100 [facility] 200 [place] [address] Phone Care Team Providers Care Supply Tech Name Role Phone Enrique Sharma Primary Care Provider Reason for Visit * Reason Comments Med Refill Encounter Details Date Type Department Care Team (Late st Contact Info) Description 12/01/2023 Refill [facility] 100 [facility] 200 [place] [phone] Harman Walker MD [address]50 [facility] 204 [place] [phone] Social History Tobacco Use Types Packs/Day Years [...] on filedocumented in this encounter Care Teams Supply Tech Relationship Specialty Start Date End Date Enrique Sharma [address] [place] [address] PCP - General 12/31/21 documented as of this encounter
--- OUTSIDE RECORDS SUMMARY | 2025-06-10 14:31 | XMS_ITS | Clinical Summary ---
Author Organization [facility] Address [address] [place] [address] Care Team Providers Care Testing Machine Operator Name Role Phone Unavailable Primary Care Provider [...] Panel) 10/18/2023 Colorectal Cancer Screening: Colonoscopy 10/18/2023 HIV Screening 10/18/2023 Hepatitis C Screening 10/18/2023 Social Influencers of Health Screening 10/18/2023 Depression Screening 09/19/2024 COVID-19 Vaccine ( - 2023-2 5 season) 2025 Influenza Vaccine (#1) 2025 RSV Immunization Adult Patie nts (1 [...]
[2025-06-10 18:43] LABS: Anion Gap 13 (12-20); Blood Urea Nitrogen 25 mg/dL (9-16); Carbon Dioxide 25 mmol/L (22-29); Chloride 108 mmol/L (96-108); Estimated Glomerular Filt Rate 44; Potassium 4.3 mmol/L (3.3-5.1); Sodium 142 mmol/L (135-145)
== END 2025-06-10 11:49 | disposition home or self-care (01) ==
LOC: HO.HKASLDS 11:48
PROVIDERS: Visit Provider Internal Medicine Nephrology
DX: I12.9 Hypertensive chronic kidney disease with stage 1 through stage 4 chronic kidney disease, or unspecified chronic kidney disease (principal); N18.31 Chronic kidney disease, stage 3a
CPT/HCPCS: 36415; 80051; 82565; 84520

== ENCOUNTER 2025-06-13 14:13 | Outpatient (AMB) | payer OTHER, SELFPAY ==
--- NOTE | 2025-06-13 14:21 | HO.NEPHOV_ITS ---
Vital Signs 06/13/25 14:26 Height 5 ft 6 in Weight 191 lb 4 oz BMI 30.9 BP 150/100 H Blood Pressure Location Lt brachial Position Sitting Pulse 83 Pulse Source Pulse Oximeter Pulse Oximetry (%) 97 Oxygen Delivery Method Room Air Intake Visit Reasons: 4mon follow-up w/labs-Conf Contact Center Specialist Required: No Accompanied by: Self / Same As Patient Allergies Oxycodone-Acetaminophen Allergy (Uncoded 11/08/23 13:27) Unknown HPI Comments Details: Dieter was seen in follow-up of his chronic kidney disease and hypertension. 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 He had global glomerulosclerosis of 25% of total glomeruli with mild interstitial fibrosis and tubular atrophy of 20% at the time of his renal biopsy. 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 Recently his uric acid has gone up and was initiated on Allopurinol. He recently had olecranon bursitis. He has not taking any nonsteroidal anti-inflammatories. He has no edema or urinary symptoms. His blood pressure has not been at goal as he ran out of ACEI and Nifedipine. His last serum creatinine has gone up marginally [facility] Medical History (Updated 02/05/25 @ 18:17 by Angelo Hitchcock MD) Chronic kidney disease, stage 3a Hypertension Surgical History History of hernia repair Family History Brother Diabetes Social History Alcohol intake: never Patient Tobacco Use Status: Never used Tobacco Review of Systems Const All systems reviewed & are unremarkable except as noted in HPI and below Physical Exam Vital Signs: Last Vital Signs Pulse 83 06/13/25 14:26 BP 150/100 H 06/13/25 14:26 Pulse Ox 97 06/13/25 14:26 Oxygen Delivery Method Room Air 06/13/25 14:26 BMI result Body Mass Index 30.9 Const General: comfortable and no acute distress Orientation/consciousness: patient oriented x3 HEENT Head: Yes normocephalic Mouth: Normal oral and palatal mucosa present Eyes EOM: EOMs intact bilaterally Neck Neck: Yes supple Resp Auscultation: clear to auscultation bilaterally Cardio Jugular venous distension: no JVD Rate: regular rate GI Palpation (GI): Soft to palpation Auscultation: normal bowel sounds General: Yes no CVA tenderness Back/Spine/Pelvis Back: no CVA tenderness Skin General skin exam: no rashes or lesions noted Neuro General: patient oriented x3 and moves all extremities Extrem General: Yes no pedal edema Results Reviewed Nephrology Results: Sodium, (135-145) 142 mmol/L 06/10/25 Potassium, (3.3-5.1) 4.3 mmol/L 06/10/25 Chloride, (96-108) 108 mmol/L 06/10/25 Carbon Dioxide, (22-29) 25 mmol/L 06/10/25 BUN, (9-16) 25 mg/dL H 06/10/25 Creatinine, (0.5-1.4) 1.62 mg/dL H 06/10/25 PTH Intact, (8.7-77.1) 186.2 pg/mL H 01/24/25 Urine Creatinine 161.94 mg/dL 03/21/24 Protein/Creatinin Ratio, (<0.2) 0.08 03/21/24 Assessment & Plan Assessment & Plan (1) Hypertension: Code(s): I10 - Essential (primary) hypertension Category: Medical Qualifiers: Hypertension type: primary hypertension Qualified Code(s): I10 - Essential (primary) hypertension (2) Chronic kidney disease, stage 3a: Code(s): N18.31 - Chronic kidney disease, stage 3a Category: Medical (3) Secondary hyperparathyroidism (of renal origin): Code(s): N25.81 - Secondary hyperparathyroidism of renal origin Category: Medical Plan He had been on low-dose ROSAS inhibitor and Nifedipine which he had not been taking for few weeks as he ran out( refilled today). He can continue his current blood pressure medications as it is keeping it at goal. He maintains good hydration. He avoids nonsteroidal anti-inflammatories. He has not a diabetic. He is on statins. I plan to start him on SGLT2 i as well as activated vitamin D at next visit. I did not make any medication changes today. Follow- up lab work ordered. Answered all questions Orders: Orders Creatinine 3 Weeks I10 - Essential (primary) hypertension, N18.31 - Chronic kidney disease, stage 3a, N25.81 - Secondary hyperparathyroidism of renal origin Electrolytes 3 Weeks I10 - Essential (primary) hypertension, N18.31 - Chronic kidney disease, stage 3a, N25.81 - Secondary hyperparathyroidism of renal origin Vitamin D 25-OH Total 3 Weeks I10 - Essential (primary) hypertension, N18.31 - Chronic kidney disease, stage 3a, N25.81 - Secondary hyperparathyroidism of renal origin Blood Urea Nitrogen 3 Weeks I10 - Essential (primary) hypertension, N18.31 - Chronic kidney disease, stage 3a, N25.81 - Secondary hyperparathyroidism of renal origin Parathyroid Hormone Intact 3 Weeks I10 - Essential (primary) hypertension, N18.31 - Chronic kidney disease, stage 3a, N25.81 - Secondary hyperparathyroidism of renal origin Medications: New nifedipine ER 90 mg PO DAILY 90 tabs 4RF lisinopril 2.5 mg PO DAILY 90 tabs 4RF Coding Level of Care Code Est Pt Level 4 (32908) Diagnoses Primary hypertension I10 Hypertension type: primary hypertension Chronic kidney disease, stage 3a N18.31 Secondary hyperparathyroidism (of renal origin) N25.81
[2025-06-13 14:26] VITALS: BP 150/100; PULSE 83; O2SAT 97; BMI 30.9
--- OUTSIDE RECORDS SUMMARY | 2025-06-13 18:40 | XMS_ITS | Clinical Summary ---
Author Organization [facility] Address [address] [facility] [address] [place] [address] Phone Care Team Providers Care Veterinary Receptionist Name Role Phone Aren Sharmaory Primary Care Provider [phone] Allergies Active Allergy Reactions Criticality Noted Date [...] [place] [address] [place] [address] Harman Walker MD Hypertension 04/29/2025 Office Communication [facility] [address] [place] [address] Harman Walker MD 04/29/2025 Refill [facility] [address] [place] [phone] Harman Walker MD Hypertension from Last 3 [...] Insurance MCR ([id number]) MCR ([id number]) Care Teams Veterinary Receptionist Relationship Specialty Start Date End Date Enrique Sharma [address] [place] [address] PCP - General 12/31/21
--- OUTSIDE RECORDS SUMMARY | 2025-06-13 18:40 | XMS_ITS | Encounter Summary ---
Author Organization [facility] Address [address] [facility] 200 [place] [address] Phone Care Team Providers Care Process Control Supervisor Name Role Phone Enrique Sharma Primary Care Provider [phone] Reason for Visit * Reason Comments Med Refill Encounter Details Date Type Department Care Team (Late st Contact Info) Description 12/01/2023 Refill [facility] [address] [facility] [address] [place] [phone] Harman Walker MD [address] [facility] 204 [place] [phone] Social History Tobacco Use Types Packs/Day Years [...] on filedocumented in this encounter Care Teams Process Control Supervisor Relationship Specialty Start Date End Date Enrique Sharma [address] [place] [address] PCP - General 12/31/21 documented as of this encounter
--- OUTSIDE RECORDS SUMMARY | 2025-06-13 18:40 | XMS_ITS | Encounter Summary ---
Author Organization [facility] Address 100 [facility] 200 [place] [address] Phone Care Team Providers Care Pr Manager Name Role Phone Enrique Sharma Primary Care Provider [phone] Reason for Visit * Reason Comments Med Refill Encounter Details Date Type Department Care Team (Late st Contact Info) Description 10/13/2024 Refill [facility] 100 [facility] [address] [place] [phone] Harman Walker MD 3550 [facility] [address] [place] [phone] Social History Tobacco Use Types Packs/Day Years [...] on filedocumented in this encounter Care Teams Pr Manager Relationship Specialty Start Date End Date Enrique Sharma [address] [place] [address] PCP - General 12/31/21 documented as of this encounter
--- OUTSIDE RECORDS SUMMARY | 2025-06-13 18:40 | XMS_ITS | Encounter Summary ---
Author Organization [facility]. Address [address] [address] Phone Care Team Providers Care Full Fashioned Garment Knitter Name Role Phone Enrique Sharma Primary Care Provider [phone] Encounter Details Date Type Department Care Team ([facility] st Contact Info) Description 04/29/2025 Office Communication [facility] [address] [address] Harman Walker MD [address] [address] Social History Tobacco Use Types [...] on filedocumented in this encounter Care Teams Full Fashioned Garment Knitter Relationship Specialty Start Date End Date Enrique Sharma [address] [place] [address] PCP - General 12/31/21 documented as of this encounter
--- OUTSIDE RECORDS SUMMARY | 2025-06-13 18:40 | XMS_ITS | Encounter Summary ---
Author Organization [facility] Address 100 [facility] 200 [place] [address] Phone Care Team Providers Care Web Site Designer Name Role Phone Enrique Sharma Primary Care Provider [phone] Reason for Visit * Reason Comments Med Refill Encounter Details Date Type Department Care Team (Late st Contact Info) Description 05/28/2025 Refill [facility] 100 [facility] 200 [place] [address] Harman Walker MD [address] [facility] 204 [place] [phone] Hypertension Social History Tobacco Use Types Packs/Day [...] Hypertension documented in this encounter Care Teams Web Site Designer Relationship Specialty Start Date End Date Enrique Sharma [address] [place] [address] PCP - General 12/31/21 documented as of this encounter
--- OUTSIDE RECORDS SUMMARY | 2025-06-13 18:40 | XMS_ITS | Encounter Summary ---
Author Organization [facility] Address [address] [facility] 200 [place] [address] Phone Care Team Providers Care Geology Technician Name Role Phone Enrique Sharma Primary Care Provider [phone] Reason for Visit * Reason Comments Med Refill Encounter Details Date Type Department Care Team (Late st Contact Info) Description 10/03/2024 Refill [facility] 200 [place] [address] Harman Walker MD [address] [facility] [address] [place] [phone] Hypertension Social History Tobacco Use Types Packs/Day [...] Hypertension documented in this encounter Care Teams Geology Technician Relationship Specialty Start Date End Date Enrique Sharma [address] [place] [address] PCP - General 12/31/21 documented as of this encounter
== END 2025-06-13 14:49 | disposition home or self-care (01) ==
LOC: HO.HKAS 14:13
PROVIDERS: PCP Pediatrics; Visit Provider Internal Medicine Nephrology
DX: I10 Essential (primary) hypertension (principal); N18.31 Chronic kidney disease, stage 3a; N25.81 Secondary hyperparathyroidism of renal origin
CPT/HCPCS: 99214

== ENCOUNTER → 2025-06-13 14:13 | Outpatient (BNVA) | payer OTHER, SELFPAY | PROVIDERS: PCP Pediatrics; Visit Provider Internal Medicine Nephrology | DX: N18.31 Chronic kidney disease, stage 3a (principal); N25.81 Secondary hyperparathyroidism of renal origin; I10 Essential (primary) hypertension | CPT/HCPCS: 99212 ==

== ENCOUNTER 2025-07-10 13:46 | Outpatient (REF) | payer OTHER, SELFPAY ==
[2025-07-10 19:19] LABS: Anion Gap 13 (12-20); Blood Urea Nitrogen 17 mg/dL (9-16); Carbon Dioxide 27 mmol/L (22-29); Chloride 108 mmol/L (96-108); Estimated Glomerular Filt Rate 47; Potassium 3.7 mmol/L (3.3-5.1); Sodium 144 mmol/L (135-145)
[2025-07-10 19:20] LABS: Parathyroid Hormone Intact 204.6 pg/mL (8.7-77.1)
== END 2025-07-10 13:47 | disposition home or self-care (01) ==
LOC: HO.HKASLDS 13:46
PROVIDERS: PCP Pediatrics; Visit Provider Internal Medicine Nephrology
DX: I12.9 Hypertensive chronic kidney disease with stage 1 through stage 4 chronic kidney disease, or unspecified chronic kidney disease (principal); N18.31 Chronic kidney disease, stage 3a; N25.81 Secondary hyperparathyroidism of renal origin
CPT/HCPCS: 36415; 80051; 82306; 82565; 83970; 84520

== ENCOUNTER 2025-07-16 16:22 | Outpatient (AMB) | payer OTHER, SELFPAY ==
--- OUTSIDE RECORDS SUMMARY | 2025-07-10 23:59 | XMS_ITS | Continuity of Care Document ---
Author Organization [facility] Address [address] [place] [address]- Care Team Providers Care Assistant Branch Operations Manager Name Role Phone Enrique Sharma MD Primary Care Physician Encounter [facility] Date(s): 06/10/25 - 07/10/25 [facility] [address] [place] [address] [place] [address]- Encounter Type: Triage Allergies, Adverse Reactions, Alerts Substance Criticality Severity Reaction Reaction Severity Status Percocet 7.5/325 itch Act bruce Immunizations Given and Recorded Vaccine Date Status Refusal Reason pneumococcal 20-valent conjugate vaccine 10/03/24 Given influenza virus vaccine, inactivated 10/03/24 Give n influenza virus vaccine, inactivated 06/23/23 Give n influenza virus vaccine, inactivated 09/14/22 Give n influenza virus vaccine, inactivated 11/03/21 Give n influenza virus vaccine, inactivated 08/22/20 Give n influenza virus vaccine, inactivated 06/28/19 Pradeep rded influenza virus vaccine, inactivated 06/29/18 Give n influenza virus vaccine, inactivated 07/05/17 Give n influenza virus vaccine, inactivated 07/01/16 Give n influenza virus vaccine, inactivated 1 08/26/15 Gi iza influenza virus vaccine, inactivated 08/23/13 Give n influenza virus vaccine, inactivated 07/13/12 Gi iza [id number] 12y+ bivalent booster vax 08/08/23 Given [id number] 12y+ bivalent booster vax 09/14/22 Given SARS-CoV-2 mRNA ([id number]) vax 11/03/21 Given SARS-CoV-2 (COVID-19) mRNA BNT-162b2 vac 10/03/21 Recorded zoster vaccine, inactivated 12/31/20 Given zoster vaccine, inactivated 08/22/20 Given pneumococcal 13-valent vaccine 04/06/18 Given tetanus/diphtheria/pertussis, acel(Tdap) 3 12/19/14 Given pneumococcal 23-valent vaccine 4 12/19/14 Given 1Result Comment: [08/26/2015] ORDERED BY [place] PERSONNEL SCHEDULER 2Admin Note: VIS 04/13/11 GIVEN 3Result Comment: [12/19/2014] ORDERED BY [place] 4Result Comment: [12/19/2014] ORDERED BY [place] Medications Albuterol (Eqv-ProAir HFA) 90 mcg/inh inhalation aerosol See Instructions, INHALE 2 PUFFS BY MOUTH 4 TIMES A DAY NEEDED FOR WHEEZING, # 8.5 each, 5 Refills, Maintenance, 12/07/24 1:29:00 PM EDT, [facility] STORE [id number], 16, INHALE 2 PUFFS BY MOUTH 4 TIMES A DAY NEEDED FOR WHEEZING, 172, cm, 10/03/24 9:37:00 EST, Height, 87.36, kg, 10/03/24 9:37:00 EST, Dry Weight Start Date: 12/07/24 Status: Ordered Medication Dispense Status: Completed Quantity: 8.5 Unit: each Total Allowed Fills: 1 Fills Dispensed: 0 atorvastatin 10 mg oral tablet 1 tablet, By Mouth, Daily at bedtime, # 90 tablet, 1 Refills, Maintenance, 02/13/25 7:08:00 AM EDT, [facility]/pharmacy #[id number], 172, cm, 01/13/25 8:07:00 EDT, Height, 87.36, kg, 10/03/24 9:37:00 EST, Dry Weight Start Date: 02/13/25 Status: Ordered Medication Dispense Status: Completed Quantity: 90.0 Unit: tablet Total Allowed Fills: 2 Fills Dispensed: 0 blood pressure cuff blood pressure cuff, See Instructions, # 1 each, Refills 0, Tot. Refills 0, Maintenance, htn to check bp, 04/06/18 3:39:16 PM EDT, Compound Start Date: 04/06/18 Status: Ordered Medication Dispense Status: Completed Quantity: 1.0 Unit: each Total Allowed Fills: 1 Fills Dispensed: 0 Certolizumab = 200 mg, Subcutaneous Infusion, 0 Refills, Maintenance, 06/20/25 4:54:00 PM EDT, Partial fill upon patient request if the prescription is for a schedule II opioid drug. Start Date: 06/20/25 Status: Ordered Medication Dispense Status: Completed Total Allowed Fills: 1 Fills Dispensed: 0 diclofenac 1% topical gel 1 application, Topically, 4 times a day, # 100 Gm, 0 Refills, Maintenance, 06/23/25 8:13:00 AM EDT, Gel, Partial fill upon patient request if the prescription is for a schedule II opioid drug. Start Date: 06/23/25 Status: Ordered Medication Dispense Status: Completed Quantity: 100.0 Unit: g Total Allowed Fills: 1 Fills Dispensed: 0 dx: asthma exacerbation dx: asthma exacerbation, See Instructions, # 1 each, Refills 0, Tot. Refills 0, Maintenance, spacerfor asthma pump, 12/23/17 2:51:51 PM EDT, Compound Start Date: 12/23/17 Status: Ordered Medication Dispense Status: Completed Quantity: 1.0 Unit: each Total Allowed Fills: 1 Fills Dispensed: 0 Elbow compression Brace with padding Elbow compression Brace with padding, See Instructions, # 1 each, Refills 0, Tot. Refills 0, Maintenance, dx: M70.21, 06/24/25 5:06:00 PM EDT, Supply Start Date: 06/24/25 Status: Ordered Medication Dispense Status: Completed Quantity: 1.0 Unit: each Total Allowed Fills: 1 Fills Dispensed: 0 escitalopram 10 mg oral tablet 1 tablet, By Mouth, Daily, # 90 tablet, 1 Refills, Maintenance, 12/12/24 6:59:00 PM EDT, [id number], 172, cm, 10/03/24 9:37:00 EST, Height, 87.36, kg, 10/03/24 9:37:00 EST, Dry Weight Start Date: 12/12/24 Status: Ordered Medication Dispense Status: Completed Quantity: 90.0 Unit: tablet Total Allowed Fills: 1 Fills Dispensed: 0 Flovent HFA 220 mcg/inh inhalation aerosol 1 puffs, Inhalation, 2 times a day, rinse mouth and throat after use, # 36 Gm, 5 Refills, Maintenance, 09/14/22 10:48:00 AM EST, Aerosol, [facility]/pharmacy #[id number], 172, cm, 09/14/22 10:05:00 EST, Height, 91.63, kg, 04/19/22 10:38:00 EDT, Dry Weight Start Date: 09/14/22 Status: Ordered Medication Dispense Status: Completed Quantity: 36.0 Unit: g Total Allowed Fills: 6 Fills Dispensed: 0 fluticasone 50 mcg/inh nasal spray See Instructions, USE 1 SPRAY IN EACH NOSTRIL TWICE A DAY, # 48 mL, 5 Refills, Maintenance, 09/23/23 4:10:00 PM EST, [facility] STORE [id number], 90, USE 1 SPRAY IN EACH NOSTRIL TWICE A DAY, 172, cm, 08/08/23 14:15:00 EST, Height, 91.63, kg, 04/19/22 10:38:00 EDT, Dry Weight Start Date: 09/23/23 Status: Ordered Medication Dispense Status: Completed Quantity: 48.0 Unit: mL Total Allowed Fills: 1 Fills Dispensed: 0 labetalol 100 mg oral tablet 2 tablet = 200 mg, By Mouth, 3 times a day, # 60 tablet, 0 Refills, Maintenance, 11/27/20 8:46:00 AMEST, Tablet, Partial fill upon patient request if the prescription is for a schedule II opioid drug. Start Date: 11/27/20 Status: Ordered Medication Dispense Status: Completed Quantity: 60.0 Unit: tablet Total Allowed Fills: 1 Fills Dispensed: 0 lisinopril 2.5 mg oral tablet Refills 0, Maintenance, 06/14/23 4:41:00 PM EDT, Partial fill upon patient request if the prescription is for a schedule II opioid drug. Start Date: 06/14/23 Status: Ordered Medication Dispense Status: Completed Total Allowed Fills: 1 Fills Dispensed: 0 Neoprene Knee Brace Medium Neoprene Knee Brace Medium, See Instructions, # 1 each, Refills 0, Tot. Refills 0, Maintenance, TATYANA: 999 Right Knee, 08/08/23 4:11:00 PM EST, Supply, 172, cm, 08/08/23 14:15:00 EST, Height, 91.63, kg, 04/19/22 10:38:00 EDT, Dry Weight Start Date: 08/08/23 Status: Ordered Medication Dispense Status: Completed Quantity: 1.0 Unit: each Total Allowed Fills: 1 Fills Dispensed: 0 Indications: Rheumatoid arthritis, unspecified; NIFEdipine (Eqv-Adalat CC) 90 mg oral tablet, extended release 0 Refills, Maintenance, 10/03/24 10:17:00 AM EST, Partial fill upon patient request if the prescription is for a schedule II opioid drug. Start Date: 10/03/24 Status: Ordered Medication Dispense Status: Completed Total Allowed Fills: 1 Fills Dispensed: 0 sildenafil 100 mg oral tablet 0 Refills, Maintenance, 06/14/23 4:41:00 PM EDT, Partial fill upon patient request if the prescription is for a schedule II opioid drug. Start Date: 06/14/23 Status: Ordered Medication Dispense Status: Completed Total Allowed Fills: 1 Fills Dispensed: 0 Spacer Spacer, See Instructions, # 1 each, Refills 0, Tot. Refills 0, Maintenance, Asthma (J45.909) TATYANA lifetime, 09/14/22 10:49:00 AM EST, Compound, 172, cm, 09/14/22 10:05:00 EST, Height, 91.63, kg, 04/19/22 10:38:00 EDT, Dry Weight Start Date: 09/14/22 Status: Ordered Medication Dispense Status: Completed Quantity: 1.0 Unit: each Total Allowed Fills: 1 Fills Dispensed: 0 traMADol 50 mg oral tablet 1 tablet = 50 mg, By Mouth, Daily, PRN as needed for pain, 0 Refills, Maintenance, 09/30/24 9:44:00 AM EST, Tablet, Partial fill upon patient request if the prescription is for a schedule II opioid drug. Start Date: 09/30/24 Status: Ordered Medication Dispense Status: Completed Total Allowed Fills: 1 Fills Dispensed: 0 Ventolin HFA 108 mcg/inh inhalation aerosol with adapter 2 puffs, Inhalation, 4 times a day, PRN NEEDED FOR WHEEZING, # 18 each, 5 Refills, Maintenance, 07/18/23 2:16:00 PM EDT, [id number], 172, cm, 02/17/23 13:43:00 EDT, Height, 91.63, kg, 04/19/22 10:38:00 EDT, Dry Weight Start Date: 07/18/23 Status: Ordered Medication Dispense Status: Completed Quantity: 18.0 Unit: each Total Allowed Fills: 1 Fills Dispensed: 0 Problem List Condition Confirmation Course Effective Dates Status Health Status Informant Anemia Confirmed Active Cataract, bilateral Confirmed Active Bilateral knee pain Confirmed Active Chronic kidney disease (CKD), stage III (moderate) Confirmed Active Depression Confirmed Active Erectile dysfunction Confirmed Active FSGS (focal segmental glomerulosclerosis) Confirmed Active Gout Confirmed Active Herpes zoster Confirmed Active Hypertension Confirmed Active Hypertensive retinopathy of right eye Confirmed Active Hypertriglyceridemia Confirmed Active INGUINAL HERNIA 1 Confirmed 06/20/09 Active Discoloration and thickening of nails both feet Confirmed Active Obese class I Confirmed Active Open-angle glaucoma of right eye, indeterminate stage Confirmed Active OA (osteoarthritis) Confirmed Active Right knee pain Confirmed Active [phone] Pet Sitting Paula Long Confirmed Active Encounter for screening colonoscopy Confirmed Active CKD III Confirmed Active Retinopathy 2 Confirmed 06/20/09 Active Rheumatoid arthritis Confirmed Active Rheumatoid arthritis with rheumatoid factor Confirmed Active ASTHMA Confirmed 06/20/09 Active 1right, repaired 05/27 2hypertensive Social History Social History Type Response Sexual Sexually involved in last 6 months: No. Gender identity: Identifies as male. Smoking Status Never (less than 100 in lifetime) entered on: 04/28/21 Sex Sex Representation Male (finding) Patient Care team information Care Team Personnel Name: Enrique Sharma MD Position: [facility] Physician - Primary Care Member Role: PCP Address: [address] [place] [address] Telecom: Name: Ethel Luke Position: [facility] AMB Nurse Member Role: Lifetime Consulting Physician Care Team Related Persons Name: AISSATOU ALEXANDER Name: SAMANTA RUIZ Name: EDDIE RUIZ Insurance Providers Guarantor name: HARJIT ALEXANDER Health Plan Information #: 1 Payer: [facility] C[facility] Payer Identifier: NA Member Number: [id number] Group Number: [id number] Subscriber Identifier: NA Relationship to Subscriber: self Coverage Type: Medicare Managed Care (Includes Medicare Advantage Plans) Coverage Verification Date: NA Telecom: NA Address:
[2025-07-16 16:33] VITALS: BP 140/80; PULSE 77; O2SAT 99; BMI 31.5
--- NOTE | 2025-07-16 16:33 | HO.NEPHOV ---
Vital Signs 07/16/25 16:33 Height 5 ft 6 in Weight 195 lb BMI 31.5 BP 140/80 H Blood Pressure Location Lt brachial Position Sitting Pulse 77 Pulse Source Pulse Oximeter Pulse Oximetry (%) 99 Oxygen Delivery Method Room Air Intake Visit Reasons: 1mnth w labs-Conf Conference Coordinator Required: No Accompanied by: Self / Same As Patient Allergies Oxycodone-Acetaminophen Allergy (Uncoded 11/08/23 13:27) Unknown HPI Comments Details: Dieter was seen in follow-up of his chronic kidney disease and hypertension. 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 He had global glomerulosclerosis of 25% of total glomeruli with mild interstitial fibrosis and tubular atrophy of 20% at the time of his renal biopsy. 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 Recently his uric acid has gone up and was initiated on Allopurinol. He has not taking any nonsteroidal anti-inflammatories. He has no edema or urinary symptoms. His blood pressure has not been at goal as he ran out of ACEI and Nifedipine. His last serum creatinine is back to baseline [facility] Medical History (Updated 02/05/25 @ 18:17 by Angelo Hitchcock MD) Chronic kidney disease, stage 3a Hypertension Surgical History History of hernia repair Family History Brother Diabetes Social History Alcohol intake: never Patient Tobacco Use Status: Never used Tobacco Review of Systems Const All systems reviewed & are unremarkable except as noted in HPI and below Physical Exam Vital Signs: Last Vital Signs Pulse 77 07/16/25 16:33 BP 140/80 H 07/16/25 16:33 Pulse Ox 99 07/16/25 16:33 Oxygen Delivery Method Room Air 07/16/25 16:33 BMI result Body Mass Index 31.5 Const General: comfortable and no acute distress Orientation/consciousness: patient oriented x3 HEENT Head: Yes normocephalic Mouth: Normal oral and palatal mucosa present Eyes EOM: EOMs intact bilaterally Neck Neck: Yes supple Resp Auscultation: clear to auscultation bilaterally Cardio Jugular venous distension: no JVD Rate: regular rate GI Palpation (GI): Soft to palpation Auscultation: normal bowel sounds General: Yes no CVA tenderness Back/Spine/Pelvis Back: no CVA tenderness Skin General skin exam: no rashes or lesions noted Neuro General: patient oriented x3 and moves all extremities Extrem General: Yes no pedal edema Results Reviewed Nephrology Results: Sodium, (135-145) 144 mmol/L 07/10/25 Potassium, (3.3-5.1) 3.7 mmol/L 07/10/25 Chloride, (96-108) 108 mmol/L 07/10/25 Carbon Dioxide, (22-29) 27 mmol/L 07/10/25 BUN, (9-16) 17 mg/dL H 07/10/25 Creatinine, (0.5-1.4) 1.53 mg/dL H 07/10/25 PTH Intact, (8.7-77.1) 204.6 pg/mL H 07/10/25 Urine Creatinine 161.94 mg/dL 03/21/24 Protein/Creatinin Ratio, (<0.2) 0.08 03/21/24 Assessment & Plan Assessment & Plan (1) Chronic kidney disease, stage 3a: Code(s): N18.31 - Chronic kidney disease, stage 3a Category: Medical (2) Secondary hyperparathyroidism (of renal origin): Code(s): N25.81 - Secondary hyperparathyroidism of renal origin Category: Medical (3) Hypertension: Code(s): I10 - Essential (primary) hypertension Category: Medical Qualifiers: Hypertension type: primary hypertension Qualified Code(s): I10 - Essential (primary) hypertension Plan He can continue his current blood pressure medications as it is keeping it at goal. I shall restart low dose ACEI @ next visit. He maintains good hydration. He avoids nonsteroidal anti-inflammatories. He has not a diabetic. He is on statins. I plan to start him on SGLT2 i at next visit. I started calcitriol 0.25 mcg three times a week. I did not make any other medication changes today. Follow-up lab work ordered. Answered all questions Orders: Orders Parathyroid Hormone Intact 10 Weeks I10 - Essential (primary) hypertension, N18.31 - Chronic kidney disease, stage 3a, N25.81 - Secondary hyperparathyroidism of renal origin Electrolytes 10 Weeks I10 - Essential (primary) hypertension, N18.31 - Chronic kidney disease, stage 3a, N25.81 - Secondary hyperparathyroidism of renal origin Calcium 10 Weeks I10 - Essential (primary) hypertension, N18.31 - Chronic kidney disease, stage 3a, N25.81 - Secondary hyperparathyroidism of renal origin Creatinine 10 Weeks I10 - Essential (primary) hypertension, N18.31 - Chronic kidney disease, stage 3a, N25.81 - Secondary hyperparathyroidism of renal origin Blood Urea Nitrogen 10 Weeks I10 - Essential (primary) hypertension, N18.31 - Chronic kidney disease, stage 3a, N25.81 - Secondary hyperparathyroidism of renal origin Medications: New calcitriol 0.25 mcg PO 3XW 20 caps 3RF Coding Level of Care Code Est Pt Level 4 (34080) Diagnoses Chronic kidney disease, stage 3a N18.31 Secondary hyperparathyroidism (of renal origin) N25.81 Primary hypertension I10 Hypertension type: primary hypertension
--- OUTSIDE RECORDS SUMMARY | 2025-07-16 20:11 | XMS_ITS | Clinical Summary ---
Author Organization [facility] Address [address] [place] [address] Care Team Providers Care Operations Trainer Name Role Phone Unavailable Primary Care Provider [...] Date Last Done Comments Colorectal Cancer Screening: Colonoscopy 1965 RSV Immunization Adult Patients (1 - Risk 50-74 years 1-dose series) 2013 Cholesterol Screening (Lipid Panel) 10/18/2023 HIV Screening 10/18/2023 Hepatitis C Screening 10/18/2023 Social Influencers of Health Screening 10/18/2023 Depression Screening 09/19/2024 DTaP,Tdap,and Td Vaccines (2 - Td or Tdap) 12/19/2024 12/19/2014 COVID-19 Vaccine ( season) 2025 09/14/2022, 11/03/2021, 10/03/2021 Influenza Vaccine (#1) 2025 , 06/23/2023, 09/14/2022, Additional history exists Hypertension/CHF/CAD Annual BMP Blood Test 06/13/2025 Zoster Vaccines Completed 12/31/2020, 08/22/2020 Pneumococcal Vaccine: 50+ Years Completed 10/03/2024, 04/06/2018, 12/19/2014 HIB Vaccines Aged Out No longer eligi [...] to complete this topic RSV Immunization Patients Under 20 months Aged Out No longer eligible based on patient's age to complete this topic Varicella Vaccines Aged Out No longer eligible based on patient's age to complete this topic
--- OUTSIDE RECORDS SUMMARY | 2025-07-16 20:11 | XMS_ITS | Encounter Summary ---
Author Organization [facility] Address [address] [facility] [address] [place] [address] Phone Care Team Providers Care Barrel Burner Name Role Phone Enrique Sharma Primary Care Provider Reason for Visit * Reason Comments Med Refill Encounter Details Date Type Department Care Team (Late st Contact Info) Description 12/01/2023 Refill [facility] [address] [facility] [address] [place] [phone] Harman Walker MD [address] [facility] [address] [place] [phone] Social History Tobacco Use Types Packs/Day Years [...] on filedocumented in this encounter Care Teams Barrel Burner Relationship Specialty Start Date End Date Enrique Sharma [address] [place] [address] PCP - General 12/31/21 documented as of this encounter
--- OUTSIDE RECORDS SUMMARY | 2025-07-16 20:11 | XMS_ITS | Clinical Summary ---
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 12/31/2021 Overview (10/06/2021): hypertensive Encounters Date Type Department Care Team Description 05/28/2025 Refill [facility] [address] [place] [address] Harman Walker MD Hypertension 04/29/2025 Refill [facility] [address] [place] [phone] Harman Walker MD Hypertension from Last 3 [...] age to complete this topic Insurance ([id number]) KRISTEN LLOYD [id number] [facility] ([id number]) Care Teams School Guidance Counselor Relationship Specialty Start Date End Date Enrique Sharma [address] [place] [id number] PCP - General 12/31/21
--- OUTSIDE RECORDS SUMMARY | 2025-07-16 20:11 | XMS_ITS | Encounter Summary ---
Author Organization [facility] Address [address] [facility] [address] [place] [address] Phone Care Team Providers Care Putty Glazer Name Role Phone Enrique Sharma Primary Care Provider [phone] Reason for Visit * Reason Comments Med Refill Encounter Details Date Type Department Care Team (Late st Contact Info) Description 10/13/2024 Refill [facility] [address] [facility] [address] [place] [phone] Harman Walker MD [address] [facility] [address] [place] [phone] Social History Tobacco Use Types Packs/Day Years [...] on filedocumented in this encounter Care Teams Putty Glazer Relationship Specialty Start Date End Date Enrique Sharma [address] [place] [address] PCP - General 12/31/21 documented as of this encounter
--- OUTSIDE RECORDS SUMMARY | 2025-07-16 20:11 | XMS_ITS | Encounter Summary ---
Author Organization [facility] Address [address] [facility] [address] [place] [address] Phone Care Team Providers Care Fire Engine Pump Operator Name Role Phone Enrique Sharma Primary Care Provider [phone] Reason for Visit * Reason Comments Med Refill Encounter Details Date Type Department Care Team (Late st Contact Info) Description 10/03/2024 Refill [facility] [address] [place] [address] Harman Walker MD [address] [facility] [address] [place] [phone] Hypertension Social History Tobacco Use Types Packs/Day [...] Hypertension documented in this encounter Care Teams Fire Engine Pump Operator Relationship Specialty Start Date End Date Enrique Sharma [address] [place] [address] PCP - General 12/31/21 documented as of this encounter
== END 2025-07-16 17:00 | disposition home or self-care (01) ==
LOC: HO.HKAS 16:22
PROVIDERS: PCP Pediatrics; Visit Provider Internal Medicine Nephrology
DX: N18.31 Chronic kidney disease, stage 3a (principal); N25.81 Secondary hyperparathyroidism of renal origin; I10 Essential (primary) hypertension
CPT/HCPCS: 99214

== ENCOUNTER → 2025-07-16 16:22 | Outpatient (BNVA) | payer OTHER, SELFPAY | PROVIDERS: PCP Pediatrics; Visit Provider Internal Medicine Nephrology | DX: N18.31 Chronic kidney disease, stage 3a (principal); N25.81 Secondary hyperparathyroidism of renal origin; I10 Essential (primary) hypertension | CPT/HCPCS: 99212 ==